=== PATIENT | female | born 1965 | race Caucasian/White ===

== ENCOUNTER 2019-01-08 18:14 | Emergency (ER) | payer OTHER ==
[~2019-01-08] VITALS: Ht 160 cm; Wt 68.0 kg
--- OUTSIDE RECORDS SUMMARY | 2019-01-08 18:18 | XMS REPORT | Summary of Care ---
Author Author [facility] [place] [facility] [place] [facility] [place] [facility] [place] Phone Unavailable Encounter BRANDON Monzon(RASHMI) [id number] Date(s): 09/14/17 - 09/14/17 [facility] [place] [facility] [place] [address] [facility] [address] [place], [place] [phone] Discharge Disposition: Home or Self Care Attending Physician: Ziyad Madrid MD Vital Signs Most recent to 1 oldest [Reference Range]: Height 162.56 cm (09/14/17 8:43 AM) Blood Pressure 113/80 mmHg [90-140/60-90 mmHg] (09/14/17 8:43 AM) Respiratory Rate 16 BRMIN [14-20 BRMIN] (09/14/17 8:43 AM) Peripheral Pulse 76 bpm Rate [60-100 bpm] (09/14/17 8:43 AM) Weight 73.182 kg (09/14/17 8:43 AM) Body Mass Index 27.69 m2 (09/14/17 8:43 AM) Problem List Condition Effective Dates Status Health Status Informant Dyspnea on Active exertion(Confirmed) Family history of Active premature coronary heart disease(Confirmed) Encounter for Active preventive health examination(Confirme d) (Confirmed) 10/11/98 - 1999 Resolved (Confirmed) 11/08/88 - 1989 Resolved Screening for breast Active cancer(Confirmed) Uterine Active prolapse(Confirmed) Allergies, Adverse Reactions, Alerts Substance Reaction Severity Status NKDA Active Chlorhexidine Gluconate1 Active 1skin burning Medications ergocalciferol 50,000 intl units oral capsule 50,000 IntlUnit=1 cap, PO, qWeek, # 12 cap, 0 Refill(s), Pharmacy: [email or web address] [id number] Start Date: 09/15/17 Stop Date: 12/08/17 Status: Ordered Results No data available for this section Immunizations No data available for this section Procedures Procedure Date Related Diagnosis Body Site Status Colonoscopy 04/04/15 Completed Colonoscopy Completed Total hysterectomy Completed Social History Social History Type Response Substance Abuse Use: None. Employment/School Status: Employed. Alcohol Current, Frequency: 1-2 times per week. Smoking Status Former smoker; Ready to change: No; Concerns about tobacco use in household: No; Exposure to Tobacco Smoke None; Cigarette Smoking Last 365 Days No; Reg Smoking Cessation Counseling No entered on: 09/30/17 Assessment and Plan No data available for this section
--- OUTSIDE RECORDS SUMMARY | 2019-01-08 18:18 | XMS REPORT | Summary of Care ---
Author Author [facility] Organization [facility] Address Unknown Phone Unavailable Encounter HQ Nicolás(FIN) [id number] Date(s): 09/30/17 - 10/01/17 [facility] [address] [facility] [place] [address]- Encounter Diagnosis Parotitis, acute (Discharge Diagnosis) - 10/01/17 Acute sialoadenitis (Final) - 10/06/17 Personal history of nicotine dependence (Final) - Discharge Disposition: Home or Self Care Attending Physician: Mora Ramos MD Vital Signs Most recent to 1 2 oldest [Reference Range]: Height 160.02 cm (09/30/17 7:51 PM) Temperature Oral 98.2 DegF 98.4 DegF [96.4-99.1 DegF] (10/01/17 1:23 AM) (09/30/17 7:51 PM) Blood Pressure 122/81 mmHg 115/84 mmHg [90-140/60-90 mmHg] (10/01/17 1:23 AM) (09/30/17 7:51 PM) Respiratory Rate 18 BRMIN 18 BRMIN [14-20 BRMIN] (10/01/17 1:23 AM) (09/30/17 7:51 PM) Peripheral Pulse 77 bpm 105 bpm Rate [60-100 bpm] (10/01/17 1:23 AM) *HI* (09/30/17 7:51 PM) Weight 72.727 kg (09/30/17 7:51 PM) Body Mass Index 28.4 m2 (09/30/17 7:51 PM) Problem List Condition Effective Dates Status Health Status Informant Dyspnea on Active exertion(Confirmed) Family history of Active premature coronary heart disease(Confirmed) Encounter for Active preventive health examination(Confirme d) (Confirmed) 10/11/98 - 1999 Resolved (Confirmed) 11/08/88 - 1989 Resolved Screening for breast Active cancer(Confirmed) Uterine Active prolapse(Confirmed) Allergies, Adverse Reactions, Alerts Substance Reaction Severity Status NKDA Active Chlorhexidine Gluconate1 Active 1skin burning Medications clindamycin 300 mg oral capsule 300 mg=1 cap, PO, Q6H, X 10 day, # 40 cap, 0 Refill(s) Start Date: 10/01/17 Stop Date: 10/11/17 Status: Completed Omnipaque 350mg/ml 100 mL, Route: IVP, Drug Form: SOLN, Dosing Weight 72.727, kg, ONCALL, STAT, Sta rt date: 09/30/17 23:20:00 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, Duration: 1 doses or times, Dose=2.2ml/kg, Max gpud=[id number] -- "To be infused by Radiology Staff ONLY" Start Date: 09/30/17 Stop Date: 09/30/17 Status: Completed Tessalon Perles 100 mg oral capsule 100 mg=1 cap, PO, TID, X 7 day, # 21 cap, 0 Refill(s) Start Date: 10/01/17 Stop Date: 10/08/17 Status: Completed Results ELECTROLYTES Most recent to 1 oldest [Reference Range]: Sodium Lvl [135-145 141 mEq/L mEq/L] (09/30/17 10:38 PM) Potassium Lvl 3.7 mEq/L [3.5-5.1 mEq/L] (09/30/17 10:38 PM) Chloride Lvl [95-109 106 mEq/L mEq/L] (09/30/17 10:38 PM) CO2 [24-32 mEq/L] 26 mEq/L (09/30/17 10:38 PM) AGAP [10.0-20.0 12.7 mEq/L mEq/L] (09/30/17 10:38 PM) CHEM PANEL Most recent to 1 oldest [Reference Range]: Creatinine Lvl 0.85 mg/dL [0.50-1.40 mg/dL] (09/30/17 10:38 PM) eGFR 80 mL/min/1.73m2 1 *NA* (09/30/17 10:38 PM) BUN [7-22 mg/dL] 21 mg/dL (09/30/17 10:38 PM) Glucose Lvl [70-99 109 mg/dL mg/dL] *HI* (09/30/17 10:38 PM) Calcium Lvl 9.6 mg/dL [8.5-10.5 mg/dL] (09/30/17 10:38 PM) 1Result Comment: The eGFR is calculated using the CKD-EPI formula. In most young, healthy individuals the eGFR will be >90 mL/min/1.73m2. The eGFR declines with age. An eGFR of 60-89 may be normal in some populations, particularly the elderly, for whom the CKD-EPI formula has not been extensively validated. Use of the eGFR is not recommended in the following populations: Individuals with unstable creatinine concentrations, including patients and those with serious co-morbid conditions. Patients with extremes in muscle mass or diet. The data above are obtained from the National Kidney Disease Education Program ( NKDEP) which additionally recommends that when the eGFR is used in patients with extremes of body mass index for purposes of drug dosing, the eGFR should be mul tiplied by the estimated BMI. IMMUNOLOGY Most recent to 1 oldest [Reference Range]: CDC HIV 4th GEN Negative [Negative] *NA* (09/30/17 10:38 PM) Immunizations No data available for this section [...]
--- OUTSIDE RECORDS SUMMARY | 2019-01-08 18:18 | XMS REPORT | Encounter Summary ---
Author Organization Unknown Address [address] [place] [address] Phone [phone] Reason for Visit Medical Complaint Instructions 1. Contact dermatitis dermatitis: care instructions triamcinolone acetonide 0.1 % topical cream hydroxyzine HCl 25 mg tablet Discussion Note: None recorded. Plan of Care Patient Instructions Please go to PCP/UC/ER if you have signs that your infection is getting worse, such as: onset of pain, swelling, warmth, or redness: Red streaks leading from the area:Pus draining from the area:fever or rash. Watch closely for changes in your health, and be sure to contact your doctor/ER/UCif:you are not getting better in 1 to2 days. Patient verbalizes understanding and agrees to the plan. Reminders Provider Appointments None recorded. Lab None recorded. Referral None recorded. Procedures None recorded. Surgeries None recorded. Imaging None recorded. Medications Name Start Date fluticasone 50 mcg/actuation nasal spray,suspension Inhale 2 sprays to each nostril at bedtime x 7 days, then 1 spray to each nostril daily at bedtime hydroxyzine HCl 25 mg tablet Take 1 tablet(s) every 8 hours by oral route as needed for itching. hyoscyamine 0.125 mg sublingual tablet levocetirizine 5 mg tablet Take 1 tablet(s) every day by oral route at bedtime for 30 days. (Stopped on 12/16/2013) tobramycin 0.3 % eye drops INSTILL 1-2 DROPS INTO RIGH EYE EVERY 4 HOURS FOR 7 DAYS tramadol 50 mg tablet TK 1 T PO Q 6 H PRN P triamcinolone acetonide 0.1 % topical cream APPLY A THIN LAYER TO THE AFFECTED AREA(S) BY TOPICAL ROUTE 2 TIMES PER DAY Medications Administered None recorded. Vitals Height Weight BMI Blood Pressure 5 ft 3 in 152 lbs 26.9 122/80 Lab Results None recorded. Allergies Name Reaction Severity Onset NKDA Problems Name Status Onset Date Source Acute Pharyngitis Active Encounter Allergic Rhinitis Active Encounter Contact Dermatitis Active Encounter Procedures None recorded. Vaccine List Vaccine Type influenza, seasonal, injectable 04/30/2015 Social History Smoking Status Never Smoker Past Encounters 02/06/2016 Contact Dermatitis Ximena Leonardo, [facility]: [address] [facility], [place] [address], Ph. History of Present Illness Cewh-Aqueekk-Fzoyw-Skin Lesion-Bite 1 Reported By: Patient HPI: Location: chest, abdomen. Quality: not painful, itchy, dry, multiple, generalized. Severity: improving, moderate. Duration: has noted for <1 week. Onset/Timing: abrupt onset. Context: no new detergents or skin products, no one else with similar rash, no sting or bite. Aggravating factors: nothing makes it worse. Associated Symptoms: no fever, no cold symptoms, no nausea, no vomiting, no diarrhea, no urinary symptoms Notes: Pt reports close contact with pets. Review of Systems Basic Reported By: Patient Constitutional: Constitutional: no fever Eyes: Eyes: no eye complaints Pqvs-Crxm-Wqppx-Throat: Ears: no ear complaints. Nose: no nose/sinus problems. Mouth/Throat: no sore throat, no bleeding gums, no mouth complaints, no teeth problems Cardiovascular: Cardiovascular: no chest pain, no shortness of breath, no known heart murmur Respiratory: Respiratory: no cough, no wheezing, no shortness of breath Gastrointestinal: Gastrointestinal: no abdominal pain, no vomiting / diarrhea Genitourinary: Genitourinary: no urinary complaints, no discharge Musculoskeletal: Musculoskeletal: no muscle aches, no muscle weakness, no arthralgias/joint pain, no back pain Skin: Skin: no abnormal / changing mole, no jaundice, rash, itching Neurologic: Neurologic: no loss of consciousness, no weakness, no numbness, no seizures, no dizziness, no headaches Physical Exam Adult Basic, Adult Female Complete Constitutional: General Appearance: healthy-appearing, well-nourished, well-developed. Level of Distress: NAD. Ambulation: ambulating normally Psychiatric: Mental Status: active and alert. Orientation: to time, to place, to person Neck: Neck: supple. Lymph Nodes: no cervical LAD, no axillary LAD Lungs: Respiratory effort: no dyspnea, no tachypnea. Auscultation: breath sounds normal Cardiovascular: Heart Auscultation: RRR, no murmurs Musculoskeletal:: Motor Strength and Tone: normal motor strength, normal tone. Joints, Bones, and Muscles: normal movement of all extremities, no tenderness Neurologic: Gait and Station: normal gait Skin: Inspection and palpation: no lesions, no ulcer, no abnormal nevi, no induration, no nodules, good turgor, no jaundice, rash. Nails: normal
--- OUTSIDE RECORDS SUMMARY | 2019-01-08 18:18 | XMS REPORT | Summary of Care ---
Author Author [facility] Organization [facility] Address Unknown Phone Unavailable Encounter HQ Nicolás(FIN) [id number] Date(s): 09/14/17 - 09/14/17 [facility] [address] [place] [phone] Encounter Diagnosis Other fatigue (Final) - 09/19/17 Abdominal distension (gaseous) (Final) - Shortness of breath (Final) - Acquired absence of ovaries, bilateral (Final) - Acquired absence of both cervix and uterus (Final) - Discharge Disposition: Home or Self Care Attending Physician: Jeremy Goodson MD Vital Signs No data available for this section Problem List Condition Effective Dates Status Health Status Informant Dyspnea on Active exertion(Confirmed) Family history of Active premature coronary heart disease(Confirmed) Encounter for Active preventive health examination(Confirme d) (Confirmed) 10/11/98 - 1999 Resolved (Confirmed) 11/08/88 - 1989 Resolved Screening for breast Active cancer(Confirmed) Uterine Active prolapse(Confirmed) Allergies, Adverse Reactions, Alerts Substance Reaction Severity Status NKDA Active Chlorhexidine Gluconate1 Active 1skin burning Medications No data available for this section Results No data available for this section [...]
--- OUTSIDE RECORDS SUMMARY | 2019-01-08 18:18 | XMS REPORT | Continuity of Care Document ---
Author Author [facility] Interface Address Unknown Phone Unavailable Problems Problem Status Onset Date Classification Date Reported Comments Source Acute sialoadenitis 10/07/2017 01/07/2018 [facility] Parotitis, acute 10/01/2017 01/07/2018 [facility] SWOLLEN LYMPH NODES Active 09/30/2017 [facility] Other fatigue 09/20/2017 12/21/2017 [facility] UTERINE PROLAPSE Active 02/02/2017 [facility] Contact dermatitis 02/06/2016 Diagnosis 02/06/2016 [facility] Resolved 10/11/1998 Problem 01/10/2018 [facility], [facility] Acute Pharyngitis Problem 02/06/2016 [facility] Allergic Rhinitis Problem 02/06/2016 [facility] Contact Dermatitis Problem 02/06/2016 [facility] Dyspnea on exertion Active Problem 01/10/2018 [facility], KAYE Grigsby,[facility] Family history of premature coronary heart disease Active Problem 01/10/2018 [facility], KAYE Grigsby,[facility] Screening for breast cancer Active Problem 01/10/2018 [facility] KAYE Grigsby,[facility] Uterine prolapse Active Problem 01/10/2018 [facility] KAYE Grigsby,[facility] Abdominal distension 12/21/2017 [facility] Shortness of breath 12/21/2017 [facility] Acquired absence of ovaries, bilateral 12/21/2017 [facility] Acquired absence of both cervix and uterus 12/21/2017 [facility] Personal history of nicotine dependence 01/07/2018 [facility] Medications Medication Details Route Status Patient Instructions Ordering Provider Order Date Source benzonatate 100 MG Oral Capsule [Tessalon Perles] 100 mg=1 cap, PO, TID, X 7 day, # 21 cap, 0 Refill(s) No Longer Active 10/01/2017 [facility] clindamycin 300 mg oral capsule 300 mg=1 cap, PO, Q6H, X 10 day, # 40 cap, 0 Refill(s) No Longer Active 10/01/2017 [facility] Iohexol 100 mL, Route: IVP, Drug Form: SOLN, Dosing Weight 72.727, kg, ONCALL, STAT, Start date: 09/30/17 23:20:00 [employer], Duration: 1 doses or times, Dose=2.2ml/kg, Max [id number] -- "To be infused by Radiology Staff ONLY" Inactive 10/01/2017 [facility] Ergocalciferol 14064 UNT Oral Capsule 50,000 IntlUnit=1 cap, PO, qWeek, # 12 cap, 0 Refill(s), Pharmacy: [facility] [id number] Active 09/15/2017 [facility] ibuprofen 600 mg oral tablet 600 mg=1 tab, PO, QID, # 30 tab, 0 Refill(s) Active 03/15/2017 [facility] tramadol hydrochloride 50 MG Oral Tablet 50 mg=1 tab, PO, Q6H, # 30 tab, 0 Refill(s) Active 03/15/2017 [facility] Docusate Sodium 50 MG Oral Capsule [Colace] 50 mg=1 cap, PO, BID, PRN constipation, # 30 cap, 0 Refill(s) Active 03/15/2017 [facility] Tramadol 50 mg, 1 tab, Route: PO, Drug form: TAB, Q6H, Dosing Weight 70.455, kg, Start date: 03/15/17 8:00:00 CDT, Duration: 30 day, Stop date: 04/14/17 2:00:00 CDTNotes: Not to exceed 400mg/day. (Same As: Ultram) Inactive 03/15/2017 [facility] Ibuprofen 600 mg, 1 tab, Route: PO, Drug form: TAB, QID, Dosing Weight 70.455, kg, Start date: 03/14/17 17:00:00 CDT, Duration: 30 day, Stop date: 04/13/17 12:00:00 CDTNotes: (Same as: Motrin) No Longer Active 03/14/2017 [facility] Hydromorphone 0.5 mg, Route: IVP, Q5Min, Dosing Weight 70.455, kg, PRN Pain Score 7-10, Start date: 03/14/17 13:42:00 CDT, Duration: 4 doses or times, Stop date: Limited # of times Inactive 03/14/2017 [facility] Labetalol 10 mg, Route: IVP, Q5Min, Dosing Weight 70.455, kg, PRN Elevated BP, Start date: 03/14/17 13:41:00 CDT, Duration: 5 doses or times, Stop date: Limited # of times Inactive 03/14/2017 [facility] Hydralazine 10 mg, Route: IVP, Q20Min, Dosing Weight 70.455, kg, PRN Elevated BP, Start date: 03/14/17 13:41:00 CDT, Duration: 2 doses or times, Stop date: Limited # of times Inactive 03/14/2017 [facility] neostigmine (ANES) Route: IV, Drug form: INJ, ONCE, Stop date: 03/14/17 13:20:00 CDT Inactive 03/14/2017 [facility] ondansetron (ANES) Route: IV, Drug form: INJ, ONCE, Stop date: 03/14/17 13:20:00 CDT Inactive 03/14/2017 [facility] glycopyrrolate (ANES) Route: IV, Drug form: INJ, ONCE, Stop date: 03/14/17 13:20:00 CDT Inactive 03/14/2017 [facility] Acetaminophen 325 MG / Hydrocodone Bitartrate 5 MG Oral Tablet [[place] 5/325] 1 tab, Route: PO, Drug Form: TAB, Dosing Weight 70.455, kg, Q6H, PRN Pain Score 1-3, Start date: 03/14/17 13:15:00 CDT, Duration: 30 day, Stop date: 04/13/17 13:14:00 CDTNotes: (Same as: [place] 325/5) No Longer Active 03/14/2017 [facility] Naloxone 0.4 mg, 1 mL, Route: IVP, Drug form: INJ, Q2MIN, Dosing Weight 70.455, kg, PRN Narcotic Reversal, Start date: 03/14/17 12:30:00 CDT, Duration: 8 doses or times, Stop date: Limited # of timesNotes: Same as Narcan Inactive 03/14/2017 [facility] Flumazenil 0.2 mg, 2 mL, Route: IVP, Drug form: INJ, PRN, Dosing Weight 70.455, kg, PRN Benzodiazepine Reversal, Initial dose, Start date: 03/14/17 12:30:00 CDT, Duration: 1 day, Stop date: 03/15/17 12:29:00 CD TNotes: (Same as: Romazicon) Inactive 03/14/2017 [facility] Oxycodone 5 mg, 5 mL, Route: PO, Drug form: LIQ, Q4H, Dosing Weight 70.455, kg, PRN Pain Score 7-10, Start date: 03/14/17 12:30:00 CDT, Duration: 30 day, Stop date: 04/13/17 12:29:00 CDTNotes: (Same as: 'Roxicodone) Inactive 03/14/2017 [facility] Ondansetron 4 mg, 2 mL, Route: IVP, Drug form: INJ, ONCE, Dosing Weight 70.455, kg, PRN Nausea & Vomiting, Start date: 03/14/17 12:30:00 CDTNotes: (Same as: Zofran) MEDICATION WASTE Product Size: 4 mg Product Wasted: ___ mg Inactive 03/14/2017 [facility] Ketorolac 30 mg, 1 mL, Route: IVP, Drug form: INJ, ONCE, Dosing Weight 70.455, kg, Start date: 03/14/17 12:30:00 CDT, Duration: 1 doses or times, Stop date: 03/14/17 12:30:00 CDTNotes: (Same as:Toradol) IV bolus must be given >15 seconds. Give IM administration slowly and deeply into the muscle. Not for use > 4 days MEDICATION WASTE Product Size: 30 mg Product Wasted: ___ mg Inactive 03/14/2017 [facility] dexamethasone (ANES) Route: IV, Drug form: INJ, ONCE, Stop date: 03/14/17 12:23:00 CDT Inactive 03/14/2017 [facility] lidocaine (ANES) Route: IV, Drug form: INJ, ONCE, Stop date: 03/14/17 12:18:00 CDT Inactive 03/14/2017 [facility] fentaNYL (ANES) Route: IV, Drug form: INJ, ONCE, Stop date: 03/14/17 12:18:00 CDT Inactive 03/14/2017 [facility] propofol (ANES) Route: IV, Drug form: INJ, ONCE, Stop date: 03/14/17 12:18:00 CDT Inactive 03/14/2017 [facility] succinylcholine (ANES) Route: IV, Drug form: INJ, ONCE, Stop date: 03/14/17 12:18:00 CDT Inactive 03/14/2017 [facility] midazolam (ANES) Route: IV, Drug form: SOLN, ONCE, Stop date: 03/14/17 12:18:00 CDT Inactive 03/14/2017 [facility] rocuronium (ANES) Route: IV, Drug form: INJ, ONCE, Stop date: 03/14/17 12:13:00 CDT Inactive 03/14/2017 [facility] acetaminophen (ANES) (ANES) Route: IV, Drug form: INJ, Start date: 03/14/17 11:48:00 CDT, Stop date: 03/14/17 12:48:00 CDT Inactive 03/14/2017 [facility] LR 1000 mL INJ (ANES) Route: IV, Total Volume: 1,000, Start date: 03/14/17 11:30:00 CDT, Stop date: 03/14/17 12:30:00 CDT Inactive 03/14/2017 [facility] cefOXitin (ANES) (ANES) Route: IV, Drug form: INJ, Start date: 03/14/17 11:28:00 CDT, Stop date: 03/14/17 12:28:00 CDT Inactive 03/14/2017 [facility] Mefoxin 2 gm, Route: IVPB, Drug form: INJ, PRE OP, Start date: 03/14/17 9:00:00 CDT, Duration: 1 day, Stop date: 03/15/17 8:59:00 CDT, ABX Indication: Surgical ProphylaxisNotes: (Same As: Mefoxin) MEDICATION WASTE Product Size: 2000 mg Product Wasted: ___ mg Inactive 03/14/2017 [facility] levocetirizine dihydrochloride 5 MG Oral Tablet levocetirizine 5 mg tablet Take 1 tablet(s) every day by oral route at bedtime for 30 days. Active 12/16/2013 [facility] Fluticasone propionate 0.05 MG/ACTUAT Nasal Inhaler fluticasone 50 mcg/actuation nasal spray,suspension Inhale 2 sprays to each nostril at bedtime x 7 days, then 1 spray to each nostril daily at bedtime Active [facility] Hydroxyzine Hydrochloride 25 MG Oral Tablet hydroxyzine HCl 25 mg tablet Take 1 tablet(s) every 8 hours by oral route as needed for itching. Active [facility] Hyoscyamine Sulfate 0.125 MG Sublingual Tablet hyoscyamine 0.125 mg sublingual tablet Active [facility] Tobramycin 3 MG/ML Ophthalmic Solution tobramycin 0.3 % eye drops INSTILL 1-2 DROPS INTO RIGH EYE EVERY 4 HOURS FOR 7 DAYS Active [facility] tramadol hydrochloride 50 MG Oral Tablet tramadol 50 mg tablet TK 1 T PO Q 6 H PRN P Active [facility] Triamcinolone Acetonide 1 MG/ML Topical Cream triamcinolone acetonide 0.1 % topical cream APPLY A THIN LAYER TO THE AFFECTED AREA(S) BY TOPICAL ROUTE 2 TIMES PER DAY Active [facility] Allergies, Adverse Reactions, Alerts Substance Category Reaction Severity Reaction type Status Date Reported Comments Source Chlorhexidine Gluconate<sup>1</sup> Assertion Propensity to adverse reactions to drug Active skin burning [facility] Immunizations Immunization Date Given Site Status Last Updated Comments Source influenza, seasonal, injectable 05/01/2015 completed [facility] Results Order Name Results Value Reference Range Date Interpretation Comments Source CHEM PANEL eGFR 80 mL/min/1.73m2 10/01/2017 Result Comment: The eGFR is calculated using the [...] from the National Kidney Disease Education Program (NKDEP) which additionally recommends that when the eGFR is used in patients with extremes of body mass index for purposes of drug dosing, the eGFR should be multiplied by the estimated BMI. [facility] CHEM PANEL Calcium Lvl 9.6 mg/dL 8.5 - 10.5 10/01/2017 [facility] CHEM PANEL AGAP 12.7 meq/L 10.0 - 20.0 10/01/2017 [facility] CHEM PANEL CO2 26 meq/L 24 - 32 10/01/2017 [facility] CHEM PANEL Chloride Lvl 106 meq/L 95 - 109 10/01/2017 [facility] CHEM PANEL Creatinine Lvl 0.85 mg/dL 0.50 - 1.40 10/01/2017 [facility] CHEM PANEL Sodium Lvl 141 meq/L 135 - 145 10/01/2017 [facility] CHEM PANEL Potassium Lvl 3.7 meq/L 3.5 - 5.1 10/01/2017 [facility] CHEM PANEL Glucose Lvl 109 mg/dL 70 - 99 10/01/2017 [facility] CHEM PANEL BUN 21 mg/dL 7 - 22 10/01/2017 [facility] IMMUNOLOGY CDC HIV 4th GEN Negative *NA* (09/30/17 10:38 PM) Negative 10/01/2017 [facility] Facial bone w contrast CT Facial bone w contrast CT EXAM: CT SCAN OF THE FACE WITH CONTRAST DATE: 09/30/2017 1118 PM [employer] INDICATION: 52 years old Female patient with history of 1d of preauricular swelling, ttp, concern for lymph node with abscess. COMPARISON: None. TECHNIQUE: Contiguous thin section axial images of the maxillofacial region was obtained after administration of intravenous contrast. Computer reformatted coronal and sagittal images are also provided. Bone and soft tissue algorithm are available for interpretation. FINDINGS: Note is made of mild asymmetric enlargement of the left parotid gland as compared to right with mild enhancement. Findings raises the concern for left parotiditis. No significant perinephric the face inflammatory fat stranding and fluid collection. There are multiple reactive subcentimeter lymph nodes within visualized portion of the neck. Both submandibular gland appears unremarkable. PARANASAL SINUSES: Minimal left maxillary mucosal thickening, remaining visualized paranasal sinuses are well aerated. Nasal septum is midline. ORBITS: Orbital elias and floors are intact. Both globes are symmetrical in appearance. Intraconal fat and extraocular muscles are normal. Lacrimal glands are normal. OSSEOUS STRUCTURES: The facial bones including the mandible are intact. There is no evidence of mandibular dislocation. No significant abnormality within the skull base and visualized upper cervical spine. IMPRESSION: 1. Mild asymmetric enlargement of the left parotid gland as compared to right with mild enhancement. Findings raises the concern for left parotiditis. 2. No abnormal drainable fluid collection to suggest abscess formation. These findings are in agreement with previous preliminary report made by [employer] international affairs vice president. 09/30/2017 - - This report was dictated by a Leveler Helper/Fellow. I have personally reviewed the images as well as the Resident's interpretation and agree with the findings. Read by: Ziyad Hancock MD Resident: Ziyad Hancock MD Dictated Date/time: 09/30/17 23:32 Electronically Signed by: Linden Dixon MD 10/01/17 00:12 FINAL REPORT [facility] Chest 2 views DX Chest 2 views DX EXAM: XR CHEST 2 VIEWS DATE: 09/30/2017 10:10 PM [employer] INDICATION: - 2 weeks of cough COMPARISON: None TECHNIQUE: PA and lateral chest radiographs FINDINGS: Lines and tubes: None. Lungs and pleura: No pulmonary or pleural based abnormality is identified. Heart and mediastinum: The heart size is normal. The mediastinal contours are normal. Bones: No acute bony abnormality is identified. IMPRESSION: No acute radiographic abnormality. 09/30/2017 - - Read by: Reji Castillo MD Dictated Date/time: 09/30/17 22:35 Electronically Signed by: Reji Castillo MD 09/30/17 22:35 FINAL REPORT [facility] Pelvis w Pelvis Transvaginal US Pelvis w Pelvis Transvaginal US EXAM: US PELVIS TRANSABDOMINAL EXAM: US PELVIS TRANSVAGINAL DATE: 09/14/2017 INDICATION: - R14.0 Abdominal distension (gaseous) ADDITIONAL INFORMATION: Status post hysterectomy and oophorectomy 03/17 COMPARISON: None. TECHNIQUE: Multiplanar grayscale and color Doppler ultrasound images of the pelvis were obtained transabdominally through a distended urinary bladder followed by transvaginal examination postvoid. FINDINGS: Uterus: Surgically absent Right ovary: Surgically absent Left ovary: Surgically absent Adnexa: Normal. Free fluid: None. Other findings: None. IMPRESSION: 1. Status post hysterectomy and oophorectomy. No fluid collections or pelvic masses seen. 09/14/2017 - - Read by: Massiel Bland MD Dictated Date/time: 09/14/17 14:44 Electronically Signed by: Massiel Bland MD 09/14/17 14:45 FINAL REPORT [facility] CHEM PANEL eGFR 95 mL/min/1.73m2 03/15/2017 Result Comment: The eGFR is calculated using the [...] from the National Kidney Disease Education Program (NKDEP) which additionally recommends that when the eGFR is used in patients with extremes of body mass index for purposes of drug dosing, the eGFR should be multiplied by the estimated BMI. [facility] CHEM PANEL Chloride Lvl 106 meq/L 95 - 109 03/15/2017 [facility] CHEM PANEL Calcium Lvl 8.8 mg/dL 8.5 - 10.5 03/15/2017 [facility] CHEM PANEL CO2 24 meq/L 24 - 32 03/15/2017 [facility] CHEM PANEL Creatinine Lvl 0.74 mg/dL 0.50 - 1.40 03/15/2017 [facility] CHEM PANEL Potassium Lvl 4.3 meq/L 3.5 - 5.1 03/15/2017 [facility] CHEM PANEL Sodium Lvl 140 meq/L 135 - 145 03/15/2017 [facility] CHEM PANEL Glucose Lvl 130 mg/dL 70 - 99 03/15/2017 [facility] CHEM PANEL BUN 10 mg/dL 7 - 22 03/15/2017 [facility] CHEM PANEL AGAP 14.3 meq/L 10.0 - 20.0 03/15/2017 [facility] HEMATOLOGY Lymphocytes # 1.2 K/CMM 1.0 - 5.5 03/15/2017 [facility] HEMATOLOGY Segs-Bands # 12.3 K/CMM 1.5 - 8.1 03/15/2017 [facility] HEMATOLOGY Monocytes # 0.8 K/CMM 0.0 - 0.8 03/15/2017 [facility] HEMATOLOGY Monocytes 5.9 % 2.0 - 12.0 03/15/2017 [facility] HEMATOLOGY Segs 85.7 % 45.0 - 75.0 03/15/2017 [facility] HEMATOLOGY Basophils 0.3 % 0.0 - 1.0 03/15/2017 [facility] HEMATOLOGY Lymphocytes 8.1 % 20.0 - 40.0 03/15/2017 [facility] HEMATOLOGY Hgb 11.8 g/dL 12.0 - 16.0 03/15/2017 [facility] HEMATOLOGY Hct 34.0 % 36.0 - 48.0 03/15/2017 [facility] HEMATOLOGY MCV 86.1 fL 80.0 - 98.0 03/15/2017 [facility] HEMATOLOGY MCH 29.8 pg 27.0 - 31.0 03/15/2017 [facility] HEMATOLOGY MCHC 34.6 g/dL 32.0 - 36.0 03/15/2017 [facility] HEMATOLOGY RDW 13.2 % 11.5 - 14.5 03/15/2017 [facility] HEMATOLOGY RBC 3.95 M/CMM 4.20 - 5.40 03/15/2017 [facility] HEMATOLOGY WBC 14.4 K/CMM 3.7 - 10.4 03/15/2017 [facility] HEMATOLOGY Platelet 201 K/CMM 133 - 450 03/15/2017 [facility] HEMATOLOGY MPV 8.2 fL 7.4 - 10.4 03/15/2017 [facility] BLOOD BANK RESULTS ABO/Rh A POS 03/14/2017 [facility] BLOOD BANK RESULTS Antibody Scrn Negative (03/14/17 8:57 AM) 03/14/2017 [facility] CHEM PANEL eGFR 90 mL/min/1.73m2 03/11/2017 Result Comment: The eGFR is calculated using the [...] from the National Kidney Disease Education Program (NKDEP) which additionally recommends that when the eGFR is used in patients with extremes of body mass index for purposes of drug dosing, the eGFR should be multiplied by the estimated BMI. [facility] CHEM PANEL Calcium Lvl 9.4 mg/dL 8.5 - 10.5 03/11/2017 [facility] CHEM PANEL Potassium Lvl 4.7 meq/L 3.5 - 5.1 03/11/2017 [facility] CHEM PANEL Chloride Lvl 108 meq/L 95 - 109 03/11/2017 [facility] CHEM PANEL CO2 26 meq/L 24 - 32 03/11/2017 [facility] CHEM PANEL Glucose Lvl 84 mg/dL 70 - 99 03/11/2017 [facility] CHEM PANEL Creatinine Lvl 0.77 mg/dL 0.50 - 1.40 03/11/2017 [facility] CHEM PANEL BUN 16 mg/dL 7 - 22 03/11/2017 [facility] CHEM PANEL Sodium Lvl 141 meq/L 135 - 145 03/11/2017 [facility] CHEM PANEL AGAP 11.7 meq/L 10.0 - 20.0 03/11/2017 [facility] HEMATOLOGY MPV 8.6 fL 7.4 - 10.4 03/11/2017 [facility] HEMATOLOGY Platelet 229 K/CMM 133 - 450 03/11/2017 [facility] HEMATOLOGY RDW 13.0 % 11.5 - 14.5 03/11/2017 [facility] HEMATOLOGY MCHC 33.8 g/dL 32.0 - 36.0 03/11/2017 [facility] HEMATOLOGY MCH 29.2 pg 27.0 - 31.0 03/11/2017 [facility] HEMATOLOGY Hct 40.4 % 36.0 - 48.0 03/11/2017 [facility] HEMATOLOGY MCV 86.3 fL 80.0 - 98.0 03/11/2017 [facility] HEMATOLOGY Hgb 13.7 g/dL 12.0 - 16.0 03/11/2017 [facility] HEMATOLOGY RBC 4.68 M/CMM 4.20 - 5.40 03/11/2017 [facility] HEMATOLOGY WBC 9.5 K/CMM 3.7 - 10.4 03/11/2017 [facility] HEMATOLOGY INR 0.98 0.85 - 1.17 03/11/2017 [facility] HEMATOLOGY PTT 33.0 s 22.9 - 35.8 03/11/2017 [facility] HEMATOLOGY PT 13.2 s 12.0 - 14.7 03/11/2017 [facility] HEMATOLOGY Monocytes # 0.5 K/CMM 0.0 - 0.8 03/11/2017 [facility] HEMATOLOGY Lymphocytes # 2.5 K/CMM 1.0 - 5.5 03/11/2017 [facility] HEMATOLOGY Eosinophils # 0.1 K/CMM 0.0 - 0.5 03/11/2017 [facility] HEMATOLOGY Basophils # 0.1 K/CMM 0.0 - 0.2 03/11/2017 [facility] HEMATOLOGY Basophils 0.6 % 0.0 - 1.0 03/11/2017 [facility] HEMATOLOGY Segs-Bands # 6.3 K/CMM 1.5 - 8.1 03/11/2017 [facility] HEMATOLOGY Eosinophils 1.3 % 0.0 - 4.0 03/11/2017 [facility] HEMATOLOGY Lymphocytes 26.2 % 20.0 - 40.0 03/11/2017 [facility] HEMATOLOGY Monocytes 5.7 % 2.0 - 12.0 03/11/2017 [facility] HEMATOLOGY Segs 66.2 % 45.0 - 75.0 03/11/2017 [facility] IMMUNOLOGY HIV Ag/Ab 4th Gen Negative *NA* (03/11/17 3:10 PM) Negative 03/11/2017 [facility] URINE AND STOOL UA RBC null 0 - 2 03/11/2017 [facility] URINE AND STOOL UA WBC 1 /HPF 0 - 5 03/11/2017 [facility] URINE AND STOOL UA Sq Epi Occasional /LPF Few /LPF 03/11/2017 [facility] URINE AND STOOL UA Urobilinogen <=1.0 mg/dL 0.1 - 1.0 03/11/2017 [facility] URINE AND STOOL Micro? Not Indicated *NA* (03/11/17 3:10 PM) 03/11/2017 [facility] URINE AND STOOL UA Spec Grav 1.012 <=1.030 03/11/2017 [facility] URINE AND STOOL UA Color Yellow *NA* (03/11/17 3:10 PM) Yellow 03/11/2017 [facility] URINE AND STOOL UA Turbidity Clear (03/11/17 3:10 PM) Clear 03/11/2017 [facility] URINE AND STOOL UA Nitrite Negative (03/11/17 3:10 PM) Negative 03/11/2017 [facility] URINE AND STOOL UA Leuk Est Negative (03/11/17 3:10 PM) Negative 03/11/2017 [facility] URINE AND STOOL UA Protein Negative mg/dL Negative mg/dL 03/11/2017 [facility] URINE AND STOOL UA Glucose Negative mg/dL Negative mg/dL 03/11/2017 [facility] URINE AND STOOL UA pH 6.5 5.0 - 8.0 03/11/2017 [facility] URINE AND STOOL UA Blood Negative (03/11/17 3:10 PM) Negative 03/11/2017 [facility] URINE AND STOOL UA Ketones Negative mg/dL Negative mg/dL 03/11/2017 [facility] URINE AND STOOL UA Bili Negative *NA* (03/11/17 3:10 PM) Negative 03/11/2017 [facility] Vital Signs Vital Sign Value Date Comments Source Systolic (mm Hg) 122 10/01/2017 [facility] Diastolic (mm Hg) 81 10/01/2017 [facility] Respitory Rate 18 10/01/2017 [facility] Heart Rate 77 10/01/2017 [facility] Temperature Oral (F) 98.2 F 10/01/2017 [facility] Weight 72.727 10/01/2017 [facility] BMI Calculated 28.4 10/01/2017 [facility] Heart Rate 105 10/01/2017 [facility] Systolic (mm Hg) 115 10/01/2017 [facility] Diastolic (mm Hg) 84 10/01/2017 [facility] Temperature Oral (F) 98.4 F 10/01/2017 [facility] Height 160.02 cm 10/01/2017 [facility] Respitory Rate 18 10/01/2017 [facility] Weight 73.182 09/14/2017 [facility] BMI Calculated 27.69 09/14/[facility] Height 162.56 cm 09/14/2017 [facility] Respitory Rate 16 09/14/2017 [facility] Heart Rate 76 09/14/2017 [facility] Systolic (mm Hg) 113 09/14/2017 [facility] Diastolic (mm Hg) 80 09/14/2017 [facility] Weight 72.33 09/07/2017 [facility] BMI Calculated 27.37 09/07/2017 [facility] Heart Rate 71 09/07/2017 [facility] Systolic (mm Hg) 134 09/07/2017 [facility] Diastolic (mm Hg) 85 09/07/2017 [facility] Height 162.56 cm 09/07/2017 [facility] Temperature Oral (F) 98.6 F 03/15/2017 [facility] Heart Rate 82 03/15/2017 [facility] Systolic (mm Hg) 119 03/15/2017 [facility] Diastolic (mm Hg) 74 03/15/2017 [facility] Respitory Rate 18 03/15/2017 [facility] Respitory Rate 18 03/15/2017 [facility] Systolic (mm Hg) 102 03/15/2017 [facility] Diastolic (mm Hg) 65 03/15/2017 [facility] Heart Rate 63 03/15/2017 [facility] Temperature Oral (F) 98.1 F 03/15/2017 [facility] Heart Rate 80 03/15/2017 [facility] Temperature Oral (F) 98.1 F 03/15/2017 [facility] Respitory Rate 18 03/15/2017 [facility] Systolic (mm Hg) 115 03/15/2017 [facility] Diastolic (mm Hg) 71 03/15/2017 [facility] BMI Calculated 27.51 03/14/2017 [facility] Weight 70.455 03/14/2017 [facility] Height 160.02 cm 03/14/2017 [facility] Diastolic (mm Hg) 80 02/06/2016 [facility] Height 63 02/06/2016 [facility] Systolic (mm Hg) 122 02/06/2016 [facility] Weight 152 02/06/2016 [facility] Encounters Location Location Details Encounter Type Encounter Number Reason For Visit Attending Provider ADM Date DC Date Status Source [place] - [facility] - [id number] Hutchison: [address] [place] [address], Ph. [id number] Ximena Leonardo 02/06/2016 [facility] Outpatient [id number] JEREMY DELCASTILLO 12/02/2016 Active [facility] Outpatient [id number] ZIYAD PITTS 03/14/2017 Active [facility] Outpatient [id number] JEREMY DELCASTILLO 03/14/2017 Active [facility] Outpatient [id number] Jeremy Zoila 03/14/2017 03/15/2017 [facility] Outpatient [id number] JEREMY DELCASTED 03/24/2017 Active [facility] Outpatient [id number] JEREMY DELCASTILLO 04/07/2017 Active [facility] [facility] [id number] JEREMY DELCASTED 05/03/2017 Active [facility] Outpatient [id number] JEREMY DELCASTED 08/19/2017 [facility]LE [facility] Pre- Reg [id number] Jeremy MartinezZoila 08/19/2017 08/19/2017 [facility] Outpatient [id number] JEREMY DELCASTED 09/07/2017 Active [facility] M[facility] [place] [id number] Jeremy MartinezZoila 09/07/2017 09/08/2017 [facility] Outpatient [id number] ZIYAD MADRID 09/14/2017 Active [facility] Internal Medicine [facility] [place] [id number] Ziyad Madrid 09/14/2017 09/15/2017 [facility] [id number] Jeremy MartinezZoila Jr 09/14/2017 09/15/2017 [facility] Internal Medicine [facility] Phone Message [id number] 09/14/2017 09/16/2017 Medical Group [facility] Emergency [id number] Mora Ramos 10/01/2017 10/01/2017 [facility] Outpatient [id number] ZIYAD MADRID 10/04/2017 Active [facility] Internal Medicine [facility] Pre-Reg [id number] Ziyad Madrid 10/04/2017 10/04/2017 [facility] Procedures Procedure Code Date Perfomer Comments Source Colonoscopy [id number] 04/04/2015 [facility] Colonoscopy [id number] 04/04/2015 [facility] Colonoscopy [id number] 04/04/2015 [facility] Colonoscopy [id number] Medical [facility] Total hysterectomy [id number] Medical [facility] Colonoscopy [id number] [facility] Total hysterectomy [id number] [facility] Colonoscopy [id number] [facility] Total hysterectomy [id number] [facility]
--- OUTSIDE RECORDS SUMMARY | 2019-01-08 18:18 | XMS REPORT | Summary of Care ---
Author Author [facility] Organization [facility] Address Unknown Phone Unavailable Encounter BRANDON Monzon(RASHMI) [id number] Date(s): 03/14/17 - 03/15/17 [facility] [address] Professional Services provided by [employer] [facility] [employer] [place] [address]- Discharge Disposition: Home or Self Care Attending Physician: Jeremy Goodson MD Admitting Physician: Jeremy Goodson MD Referring Physician: Shayy Coleman MD Vital Signs 1 2 3 Most recent to oldest [Reference Range]: 160.02 cm (03/14/17 8:56 AM) Height 98.6 DegF (03/15/17 7:31 AM) 98.1 DegF (03/15/17 3:00 AM) 98.1 DegF (03/14/17 11:00 PM) Temperature Oral [96.4-99.1 DegF] 119/74 mmHg (03/15/17 7:31 AM) 102/65 mmHg (03/15/17 3:00 AM) 115/71 mmHg (03/14/17 11:00 PM) Blood Pressure [90-140/60-90 mmHg] 18 BRMIN (03/15/17 7:31 AM) 18 BRMIN (03/15/17 3:00 AM) 18 BRMIN (03/14/17 11:00 PM) Respiratory Rate [14-20 BRMIN] 82 bpm (03/15/17 7:31 AM) 63 bpm (03/15/17 3:00 AM) 80 bpm (03/14/17 11:00 PM) Peripheral Pulse Rate [60-100 bpm] 70.455 kg (03/14/17 8:56 AM) Weight 27.51 m2 (03/14/17 8:56 AM) Body Mass Index Problem List Condition Effective Dates Status Health Status Informant (Confirmed) 10/11/98 - 1999 Resolved (Confirmed) 11/08/88 - 1989 Resolved Uterine Active prolapse(Confirmed) Allergies, Adverse Reactions, Alerts Substance Reaction Severity Status Chlorhexidine Gluconate1 Active NKDA Active 1skin burning Medications acetaminophen (ANES) (ANES) Route: IV, Drug form: INJ, Start date: 03/14/17 11:48:00 CDT, Stop date: 7 12:48:00 CDT Start Date: 03/14/17 Stop Date: 03/14/17 Status: Completed ANES flumazenil 0.2 mg, 2 mL, Route: IVP, Drug form: INJ, PRN, Dosing Weight 70.455, kg, PRN Kiet zodiazepine Reversal, Initial dose, Start date: 03/14/17 12:30:00 CDT, Duration: 1 day, Stop date: 03/15/17 12:29:00 CDT Notes: (Same as: Romazicon) Start Date: 03/14/17 Stop Date: 03/14/17 Status: Discontinued ANES hydrALAZINE 10 mg, Route: IVP, Q20Min, Dosing Weight 70.455, kg, PRN Elevated BP, Start date : 03/14/17 13:41:00 CDT, Duration: 2 doses or times, Stop date: Limited # of josé es Start Date: 03/14/17 Stop Date: 03/14/17 Status: Discontinued ANES HYDROmorphone 0.5 mg, Route: IVP, Q5Min, Dosing Weight 70.455, kg, PRN Pain Score 7-10, Start date: 03/14/17 13:42:00 CDT, Duration: 4 doses or times, Stop date: Limited # of times Start Date: 03/14/17 Stop Date: 03/14/17 Status: Discontinued ANES ketOROLAC 30 mg, 1 mL, Route: IVP, Drug form: INJ, ONCE, Dosing Weight 70.455, kg, Start d ate: 03/14/17 12:30:00 CDT, Duration: 1 doses or times, Stop date: 03/14/17 12:3 0:00 CDT Notes: (Same as:Toradol) IV bolus must be given >15 seconds. Give IM administration slowly and deeply into the muscle.Not for use > 4 days MEDICATION WASTE Product Size: 30 mgProduct Wasted: ___ mg Start Date: 03/14/17 Stop Date: 03/14/17 Status: Completed ANES labetalol 10 mg, Route: IVP, Q5Min, Dosing Weight 70.455, kg, PRN Elevated BP, Start date: 03/14/17 13:41:00 CDT, Duration: 5 doses or times, Stop date: Limited # of times Start Date: 03/14/17 Stop Date: 03/14/17 Status: Discontinued ANES naloxone 0.4 mg, 1 mL, Route: IVP, Drug form: INJ, Q2MIN, Dosing Weight 70.455, kg, PRN N arcotic Reversal, Start date: 03/14/17 12:30:00 CDT, Duration: 8 doses or times, Stop date: Limited # of times Notes: Same as Narcan Start Date: 03/14/17 Stop Date: 03/14/17 Status: Discontinued ANES ondansetron 4 mg, 2 mL, Route: IVP, Drug form: INJ, ONCE, Dosing Weight 70.455, kg, PRN Naus ea & Vomiting, Start date: 03/14/17 12:30:00 CDT Notes: (Same as: Marifer) MEDICATION WASTE Product Size: 4 mgProduct Was ev: ___ mg Start Date: 03/14/17 Stop Date: 03/14/17 Status: Discontinued ANES oxyCODONE 5 mg, 5 mL, Route: PO, Drug form: LIQ, Q4H, Dosing Weight 70.455, kg, PRN Pain S core 7-10, Start date: 03/14/17 12:30:00 CDT, Duration: 30 day, Stop date: 04/13 12:29:00 CDT Notes: (Same as: 'Roxicodone) Start Date: 03/14/17 Stop Date: 03/14/17 Status: Discontinued cefOXitin (ANES) (ANES) Route: IV, Drug form: INJ, Start date: 03/14/17 11:28:00 CDT, Stop date: 7 12:28:00 CDT Start Date: 03/14/17 Stop Date: 03/14/17 Status: Completed Colace 50 mg oral capsule 50 mg=1 cap, PO, BID, PRN constipation, # 30 cap, 0 Refill(s) Start Date: 03/15/17 Status: Ordered dexamethasone (ANES) Route: IV, Drug form: INJ, ONCE, Stop date: 03/14/17 12:23:00 CDT Start Date: 03/14/17 Stop Date: 03/14/17 Status: Completed fentaNYL (ANES) Route: IV, Drug form: INJ, ONCE, Stop date: 03/14/17 12:18:00 CDT Start Date: 03/14/17 Stop Date: 03/14/17 Status: Completed glycopyrrolate (ANES) Route: IV, Drug form: INJ, ONCE, Stop date: 03/14/17 13:20:00 CDT Start Date: 03/14/17 Stop Date: 03/14/17 Status: Completed ibuprofen 600 mg, 1 tab, Route: PO, Drug form: TAB, QID, Dosing Weight 70.455, kg, Start d ate: 03/14/17 17:00:00 CDT, Duration: 30 day, Stop date: 04/13/17 12:00:00 CDT Notes: (Same as: Motrin) Start Date: 03/14/17 Stop Date: 03/15/17 Status: Discontinued ibuprofen 600 mg oral tablet 600 mg=1 tab, PO, QID, # 30 tab, 0 Refill(s) Start Date: 03/15/17 Stop Date: 04/15/17 Status: Ordered lidocaine (ANES) Route: IV, Drug form: INJ, ONCE, Stop date: 03/14/17 12:18:00 CDT Start Date: 03/14/17 Stop Date: 03/14/17 Status: Completed LR 1000 mL INJ (ANES) Route: IV, Total Volume: 1,000, Start date: 03/14/17 11:30:00 CDT, Stop date: 12:30:00 CDT Start Date: 03/14/17 Stop Date: 03/14/17 Status: Completed Mefoxin 2 gm, Route: IVPB, Drug form: INJ, PRE OP, Start date: 03/14/17 9:00:00 CDT, Dur ation: 1 day, Stop date: 03/15/17 8:59:00 CDT, ABX Indication: Surgical Prophyla xis Notes: (Same As: Mefoxin) MEDICATION WASTE Product Size: 2000 mgProduct Wasted: ___ mg Start Date: 03/14/17 Stop Date: 03/14/17 Status: Completed midazolam (ANES) Route: IV, Drug form: SOLN, ONCE, Stop date: 03/14/17 12:18:00 CDT Start Date: 03/14/17 Stop Date: 03/14/17 Status: Completed neostigmine (ANES) Route: IV, Drug form: INJ, ONCE, Stop date: 03/14/17 13:20:00 CDT Start Date: 03/14/17 Stop Date: 03/14/17 Status: Completed [place] 5/325 oral tablet 1 tab, Route: PO, Drug Form: TAB, Dosing Weight 70.455, kg, Q6H, PRN Pain Score 1-3, Start date: 03/14/17 13:15:00 CDT, Duration: 30 day, Stop date: 04/13/17 13 :14:00 CDT Notes: (Same as: [place] 325/5) Start Date: 03/14/17 Stop Date: 03/15/17 Status: Discontinued ondansetron (ANES) Route: IV, Drug form: INJ, ONCE, Stop date: 03/14/17 13:20:00 CDT Start Date: 03/14/17 Stop Date: 03/14/17 Status: Completed propofol (ANES) Route: IV, Drug form: INJ, ONCE, Stop date: 03/14/17 12:18:00 CDT Start Date: 03/14/17 Stop Date: 03/14/17 Status: Completed rocuronium (ANES) Route: IV, Drug form: INJ, ONCE, Stop date: 03/14/17 12:13:00 CDT Start Date: 03/14/17 Stop Date: 03/14/17 Status: Completed succinylcholine (ANES) Route: IV, Drug form: INJ, ONCE, Stop date: 03/14/17 12:18:00 CDT Start Date: 03/14/17 Stop Date: 03/14/17 Status: Completed tramadol 50 mg, 1 tab, Route: PO, Drug form: TAB, Q6H, Dosing Weight 70.455, kg, Start da te: 03/15/17 8:00:00 CDT, Duration: 30 day, Stop date: 04/14/17 2:00:00 CDT Notes: Not to exceed 400mg/day. (Same As: Ultram) Start Date: 03/15/17 Stop Date: 03/15/17 Status: Discontinued tramadol 50 mg oral tablet 50 mg=1 tab, PO, Q6H, # 30 tab, 0 Refill(s) Start Date: 03/15/17 Stop Date: 04/15/17 Status: Ordered Results BLOOD BANK RESULTS Most recent to 1 oldest [Reference Range]: ABO/Rh A POS *Unknown* (03/14/17 8:57 AM) Antibody Scrn Negative (03/14/17 8:57 AM) ELECTROLYTES Most recent to 1 oldest [Reference Range]: Sodium Lvl [135-145 140 mEq/L 141 mEq/L mEq/L] (03/15/17 2:58 AM) (03/11/17 3:10 PM) Potassium Lvl 4.3 mEq/L 4.7 mEq/L [3.5-5.1 mEq/L] (03/15/17 2:58 AM) (03/11/17 3:10 PM) Chloride Lvl [95-109 106 mEq/L 108 mEq/L mEq/L] (03/15/17 2:58 AM) (03/11/17 3:10 PM) CO2 [24-32 mEq/L] 24 mEq/L 26 mEq/L (03/15/17 2:58 AM) (03/11/17 3:10 PM) AGAP [10.0-20.0 14.3 mEq/L 11.7 mEq/L mEq/L] (03/15/17 2:58 AM) (03/11/17 3:10 PM) CHEM PANEL Most recent to 1 2 oldest [Reference Range]: Creatinine Lvl 0.74 mg/dL 0.77 mg/dL [0.50-1.40 mg/dL] (03/15/17 2:58 AM) (03/11/17 3:10 PM) eGFR 95 mL/min/1.73m2 1 90 mL/min/1.73m2 2 *NA* *NA* (03/15/17 2:58 AM) (03/11/17 3:10 PM) BUN [7-22 mg/dL] 10 mg/dL 16 mg/dL (03/15/17 2:58 AM) (03/11/17 3:10 PM) Glucose Lvl [70-99 130 mg/dL 84 mg/dL mg/dL] *HI* (03/11/17 3:10 PM) (03/15/17 2:58 AM) Calcium Lvl 8.8 mg/dL 9.4 mg/dL [8.5-10.5 mg/dL] (03/15/17 2:58 AM) (03/11/17 3:10 PM) 1Result Comment: The eGFR is calculated [...] be mul tiplied by the estimated BMI. 2Result Comment: The eGFR is calculated using the [...] be mul tiplied by the estimated BMI. URINE AND STOOL Most recent to 1 2 oldest [Reference Range]: UA Turbidity [Clear] Clear (03/11/17 3:10 PM) UA Color [Yellow] Yellow *NA* (03/11/17 3:10 PM) UA pH [5.0-8.0] 6.5 (03/11/17 3:10 PM) UA Spec Grav 1.012 [<=1.030] (03/11/17 3:10 PM) UA Glucose [Negative Negative mg/dL mg/dL] *NA* (03/11/17 3:10 PM) UA Blood [Negative] Negative (03/11/17 3:10 PM) UA Ketones [Negative Negative mg/dL mg/dL] *NA* (03/11/17 3:10 PM) UA Protein [Negative Negative mg/dL mg/dL] (03/11/17 3:10 PM) UA Urobilinogen <=1.0 mg/dL [0.1-1.0 mg/dL] *NA* (03/11/17 3:10 PM) UA Bili [Negative] Negative *NA* (03/11/17 3:10 PM) UA Leuk Est Negative [Negative] (03/11/17 3:10 PM) UA Nitrite Negative [Negative] (03/11/17 3:10 PM) UA WBC [0-5 /HPF] 1 /HPF (03/11/17 3:10 PM) UA RBC [0-2 /HPF] <1 /HPF (03/11/17 3:10 PM) UA Sq Epi [Few /LPF] Occasional /LPF *NA* (03/11/17 3:10 PM) Micro? Not Indicated *NA* (03/11/17 3:10 PM) IMMUNOLOGY Most recent to 1 2 oldest [Reference Range]: HIV Ag/Ab 4th Gen Negative [Negative] *NA* (03/11/17 3:10 PM) HEMATOLOGY Most recent to 1 2 oldest [Reference Range]: WBC [3.7-10.4 K/CMM] 14.4 K/CMM 9.5 K/CMM *HI* (03/11/17 3:10 PM) (03/15/17 2:58 AM) RBC [4.20-5.40 3.95 M/CMM 4.68 M/CMM M/CMM] *LOW* (03/11/17 3:10 PM) (03/15/17 2:58 AM) Hgb [12.0-16.0 g/dL] 11.8 g/dL 13.7 g/dL *LOW* (03/11/17 3:10 PM) (03/15/17 2:58 AM) Hct [36.0-48.0 %] 34.0 % 40.4 % *LOW* (03/11/17 3:10 PM) (03/15/17 2:58 AM) MCV [80.0-98.0 fL] 86.1 fL 86.3 fL (03/15/17 2:58 AM) (03/11/17 3:10 PM) MCH [27.0-31.0 pg] 29.8 pg 29.2 pg (03/15/17 2:58 AM) (03/11/17 3:10 PM) MCHC [32.0-36.0 34.6 g/dL 33.8 g/dL g/dL] (03/15/17 2:58 AM) (03/11/17 3:10 PM) RDW [11.5-14.5 %] 13.2 % 13.0 % (03/15/17 2:58 AM) (03/11/17 3:10 PM) Platelet [133-450 201 K/CMM 229 K/CMM K/CMM] (03/15/17 2:58 AM) (03/11/17 3:10 PM) MPV [7.4-10.4 fL] 8.2 fL 8.6 fL (03/15/17 2:58 AM) (03/11/17 3:10 PM) Segs [45.0-75.0 %] 85.7 % 66.2 % *HI* (03/11/17 3:10 PM) (03/15/17 2:58 AM) Lymphocytes 8.1 % 26.2 % [20.0-40.0 %] *LOW* (03/11/17 3:10 PM) (03/15/17 2:58 AM) Monocytes [2.0-12.0 5.9 % 5.7 % %] (03/15/17 2:58 AM) (03/11/17 3:10 PM) Eosinophils [0.0-4.0 1.3 % %] (03/11/17 3:10 PM) Basophils [0.0-1.0 0.3 % 0.6 % %] (03/15/17 2:58 AM) (03/11/17 3:10 PM) Segs-Bands # 12.3 K/CMM 6.3 K/CMM [1.5-8.1 K/CMM] *HI* (03/11/17 3:10 PM) (03/15/17 2:58 AM) Lymphocytes # 1.2 K/CMM 2.5 K/CMM [1.0-5.5 K/CMM] (03/15/17 2:58 AM) (03/11/17 3:10 PM) Monocytes # [0.0-0.8 0.8 K/CMM 0.5 K/CMM K/CMM] (03/15/17 2:58 AM) (03/11/17 3:10 PM) Eosinophils # 0.1 K/CMM [0.0-0.5 K/CMM] (03/11/17 3:10 PM) Basophils # [0.0-0.2 0.1 K/CMM K/CMM] (03/11/17 3:10 PM) PT [12.0-14.7 13.2 seconds seconds] (03/11/17 3:10 PM) INR [0.85-1.17] 0.98 (03/11/17 3:10 PM) PTT [22.9-35.8 33.0 seconds seconds] (03/11/17 3:10 PM) Immunizations No data available for this section Procedures Procedure Date Related Diagnosis Body Site Colonoscopy Social History Social History Type Response Smoking Status Former smoker; Exposed at work; Cigarette Smoking Last 365 Days No; Reg Smoking Cessation Counseling No1 1Quit 12 yrs ago; exposed at work Assessment and Plan Extracted from: Title: Clinical Document Author: Jeremy Goodson MD Date: 03/15/17 Discharge summary Name: Svetlana Khan Admit date: 03/14/2017 Discharge date: 03/15/2017 Admit diagnosis: 1. Uterine prolapse, grade 2 Discharge diagnosis: 1. Uterine prolapse, grade 2 Procedures: 1. Laparoscopic-asssisted vaginal hysterectomy 2. Bilateral salpingo-oophorectomy Consults: Anesthesia Brief summary of hospital course Patient is a 52 y/o with grade 2 uterine prolapse who is now s/p scheduled LAVH / BSO. Post operative course uncomplicated. By POD#1 patient met all adequate milestones and is stable for discharge home with follow up and strict precautions. Medications: Ibuprofen 600 mg q6H Pain, Tramadol 50 mg q6H Pain, Colace PRN constipation. Resume all home medications. Activity / Restrictions: no heavy lifting and pelvic rest for 6 weeks Follow up with Dr. 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 Tolerating reg diet without N/V. Voiding freely. Ambulating without sx of anemia. OBJECTIVE 24hr Labs 03/15 0258 Glucose Mga228 H BUN10 Creatinine Lvl0.74 Sodium Vol339 Potassium Lvl4.3 Chloride Ypw943 CO224 AGAP14.3 Calcium Lvl8.8 eGFR95 WBC14.4 H RBC3.95 L Hgb11.8 L Hct34.0 L MCV86.1 MCH29.8 MCHC34.6 RDW13.2 Xfmqlxbo711 MPV8.2 Segs85.7 H Monocytes5.9 Lymphocytes8.1 L Basophils0.3 Segs-Bands #12.3 H Lymphocytes #1.2 Monocytes #0.8 03/14 0857 ABO/RhA POS Antibody ScrnNegative [place] still necessary (Yes/No): Line still necessary (Yes/No): VitalsTmp(F)[id number] 03/15 03:8.292648/875110 2.0L/m 03/14 23:0098.948489/633981 2.0L/m 03/14 19:0097.988012/2366774 2.0L/m 03/14 15:7.171920/362943 2.0L/m 03/14 14:00----55006/[id number]--- 24 Hr Tmax: 98.8F (37.11c) at 03/14 08:44Vital Signs are the last 5 in the past 48 hours. DateWt(kg)Wt(lb)Ht(cm)Ht(in)Method 03/14 (initial) 70.45 155.00Estimated 98895.02 63.00Stated I&ORecordInOutBal 4hr Tot 1616 1600 16 1324hr Tot 0 0 0 Medications (13) Active Scheduled Meds (1): 03/14/17 ibuprofen 600 mg PO QID Unscheduled Meds: None PRN Meds (1): 03/14/17 acetaminophen-hydrocodone ([place] 5/325 oral tablet) 1 tab PO Q6H One Time Meds (11): (Completed) dexamethasone (dexamethasone (ANES)) IV ONCE (Completed) fentaNYL (fentaNYL (ANES)) IV ONCE (Completed) glycopyrrolate (glycopyrrolate (ANES)) IV ONCE 03/14/17 (Completed) ketOROLAC (ANES ketOROLAC) 30 mg IVP ONCE (Completed) lidocaine (lidocaine (ANES)) IV ONCE (Completed) midazolam (midazolam (ANES)) IV ONCE (Completed) neostigmine (neostigmine (ANES)) IV ONCE (Completed) ondansetron (ondansetron (ANES)) IV ONCE (Completed) propofol (propofol (ANES)) IV ONCE (Completed) rocuronium (rocuronium (ANES)) IV ONCE (Completed) succinylcholine (succinylcholine (ANES)) IV ONCE Continuous Infusions: None General: Alert and oriented. Respiratory: Lungs are clear to auscultation. Cardiovascular: Normal rate, Regular rhythm, No murmur. Gastrointestinal: Soft, Non-tender. Incisions: c/d/i Musculoskeletal no calf tenderness. SCD and EV in place. ASSESSMENT & PLAN 52 y/o s/p LAVH/BSO, POD#1 doing well 1. POD#1, AFVSS. meeting adequate milestones - Pain: mod controlled on PO ibuprofen with [place] PRN, will add Tramadol - Heme: 13.7--> EBL 100 cc--> 11.8, no s/sx of anemia - GI/. Tolerating reg diet. Voiding freely - Ppx: ISS at bedside. SCDs in place Dispo: meeting adequate milestones, possible d/c. Discuss final dispo with Dr. Jung, PGY3
--- OUTSIDE RECORDS SUMMARY | 2019-01-08 18:18 | XMS REPORT | Summary of Care ---
Author Author [facility] Organization [facility] Address Unknown Phone Unavailable Encounter BRANDON Monzon(RASHMI) [id number] Date(s): 09/07/17 - 09/07/17 [facility] [address], [address] [phone] Discharge Disposition: Home or Self Care Attending Physician: Jeremy Goodson MD Vital Signs Most recent to 1 oldest [Reference Range]: Height 162.56 cm (09/07/17 9:20 AM) Blood Pressure 134/85 mmHg [90-140/60-90 mmHg] (09/07/17 9:20 AM) Peripheral Pulse 71 bpm Rate [60-100 bpm] (09/07/17 9:20 AM) Weight 72.33 kg (09/07/17 9:20 AM) Body Mass Index 27.37 m2 (09/07/17 9:20 AM) Problem List Condition Effective Dates Status [...] Chlorhexidine Gluconate1 Active 1skin burning Medications No Known Medications Results No data available for this section [...]
--- OUTSIDE RECORDS SUMMARY | 2019-01-08 18:18 | XMS REPORT | Summary of Care ---
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 Name Role Phone Tracey Morocho Unavailable Unavailable KELSEA MURPHY MD, MURIEL Unavailable Unavailable Srinivasan ESPARZA, Migue Unavailable Unavailable Unavailable Unavailable Functional Status Name Dates Details Functional status health issues are not documented Status: Name Dates Details Cognitive status health issues are not documented Status: Problems Name Dates Details Abnormal ECG (794.31, R94.31) Status: Active Osteoarthritis (715.90, M19.90) Status: Active Knee pain (719.46, M25.569) Status: Active HTN (hypertension) (401.9, I10) Status: Active HLD (hyperlipidemia) (272.4, E78.5) Status: Active Dyspnea (786.09, R06.00) Status: Active Medications Name Dates Details Medications not documented Allergies and Adverse Reactions Name Dates Details Chlorhexidine Gluconate LIQD (Allergy) Status: Active Procedures Procedure Dates Details [QLH] CBC (INCLUDES DIFF/PLT) Date: 14-Oct-2017 [QLH] CMP W/EGFR Date: 14-Oct-2017 [QLH] CREATINE KINASE, TOTAL Date: 14-Oct-2017 [QLH] LIPID PANEL Date: 14-Oct-2017 [QLH] TSH, 3RD GENERATION W/REFLEX TO FT4 Date: 14-Oct-2017 [QLH] LIPOPROTEIN (a) Date: 14-Oct-2017 [QLH] HEMOGLOBIN A1c Date: 14-Oct-2017 [QLH] CMP W/EGFR Date: 22-Nov-2017 [QLH] LIPID PANEL Date: 22-Nov-2017 [QLH] TSH, 3RD GENERATION W/REFLEX TO FT4 Date: 22-Nov-2017 [QLH] B TYPE NATRIURETIC PEPTIDE (BNP) Date: 22-Nov-2017 Immunization Name Dates Details Immunizations not documented Social History Name Dates Details Unknown if ever smoked Vital Signs Date Test Result Details [id number] BP Systolic 116 mm[Hg] Status: Comments: Location: [facility]; Position: Sitting BP Diastolic 76 mm[Hg] Status: Comments: Location: [facility]; Position: Sitting Height 63 in Status: Weight 160 lb Status: Body Mass Index Calculated 28.34 kg/m2 Status: Body Surface Area Calculated 1.76 m2 Status: Heart Rate 67 /min Status: Comments: Location: L Radial; Results Date Description Value Details Results not documented Plan of Care Name Dates Details Planned Observations Planned Goals not documented Planned Encounters Appointment; ZOHREH ELBLANC M.D. On: 16-Jan-2018 8:30 Appointment; MIGUE DE LOS SANTOS M.D. On: 26-May-2018 9:20 Interventions Provided Follow-ups/Referrals* Rheumatology Referral; Done: 24 Nov 2017 Instructions Name Dates Details Instructions not documented Encounters Appointment; MIGUE DE LOS SANTOS M.D. Encounter Diagnosis: Problem not documented On: 14-Oct-2017 8:00 Appointment; TRICE CALDERON Encounter Diagnosis: Problem not documented On: 10-Nov-2017 8:00 Appointment; MIGUE DE LOS SANTOS M.D. Encounter Diagnosis: Problem not documented On: 22-Nov-2017 15:00
--- OUTSIDE RECORDS SUMMARY | 2019-01-08 18:18 | XMS REPORT | Summary of Care ---
Author Author [facility] Internal Medicine [facility] Organization [facility] Internal [facility] Address Unknown Phone Unavailable Encounter HQ Nicolás(FIN) [id number] Date(s): 10/04/17 - 10/04/17 [facility] Internal Medicine [facility] [address] [facility] [address] [place] [address]- Attending Physician: Ziyad Madrid MD Referring Physician: Ziyad Madrid MD Vital Signs No data available for [...]
--- OUTSIDE RECORDS SUMMARY | 2019-01-08 18:18 | XMS REPORT | Summary of Care ---
Author Author [facility] Internal Medicine [facility] Organization [facility] Internal Medicine [facility] Address Unknown Phone Unavailable Encounter [facility] Nicol[facility](FIN) [id number] Date(s): 09/14/17 - 09/15/17 [facility] Internal Medicine [facility] [address] [facility] [address] [place] [address]- Vital Signs No data available for this [...]
--- OUTSIDE RECORDS SUMMARY | 2019-01-08 18:18 | XMS REPORT | Summary of Care ---
Author Author [facility] Organization [facility] Address Unknown Phone Unavailable Encounter [facility] Nicolás(FIN) [id number] Date(s): 08/19/17 - 08/19/17 [facility] [address] [facility], [address] [place], [place] [address] [phone] Attending Physician: Jeremy Goodson MD Vital Signs [...]
--- NOTE | 2019-01-08 20:15 | Diagnostic Imaging Report ---
CERVICAL SPINE 4 OR 5 VIEWS - views HISTORY: Pain COMPARISON: None available. FINDINGS: Bones: No fracture. The alignment is normal. Joints: Mild disc degenerative change at C5-6 with marginal disc osteophyte complex. No significant foraminal stenosis. Soft tissues: Normal. IMPRESSION: Minimal degenerative changes of the cervical spine without foraminal stenosis. Signed by: Terrence Werner MD on 01/08/2019 8:12 PM
[2019-01-08 22:36] VITALS: BP 115/88
== END 2019-01-08 22:44 | disposition home or self-care (01) ==
LOC: ER 18:14
DX: M47.812 Spondylosis without myelopathy or radiculopathy, cervical region (principal); M54.5 Low back pain; F41.9 Anxiety disorder, unspecified; R42 Dizziness and giddiness; E07.9 Disorder of thyroid, unspecified
CPT/HCPCS: 72050; 99283

== ENCOUNTER → 2022-05-11 | Outpatient (CLI) | payer BC | LOC: DX 09:38 | PROVIDERS: ATTEND Internal Medicine Gastroenterology | DX: K22.5 Diverticulum of esophagus, acquired (principal) | CPT/HCPCS: 74220 ==

== ENCOUNTER → 2025-05-29 | Outpatient (REF) | payer OTHER ==
[~2025-05-29] MED LIST: CRESTOR10 MG PO; PROGESTERONE100 MG; PROTONIX20 MG PO
== END ==
LOC: US 07:51
PROVIDERS: ATTEND Internal Medicine Gastroenterology
DX: R10.9 Unspecified abdominal pain (principal)
CPT/HCPCS: 76700